=== PATIENT | male | born 1955 | race African-American/Black ===

== ENCOUNTER 2019-07-30 00:55 | Emergency (ER) | payer BC ==
[~2019-07-30] VITALS: Ht 167.6 cm; Wt 79.8 kg
[2019-07-30 03:05] LABS: HEMATOCRIT 38.3 % (42.0-52.0); HEMOGLOBIN 12.7 gm/dL (14.0-18.0); MCHC 33.2 g/dL (28.0-37.0); MCV 84.4 fL (80.0-100.0); RBC 4.54 mil/uL (4.50-6.00); RDW 13.4 % (10.5-14.5); WBC 7.2 thou/uL (4.0-11.0)
[2019-07-30 03:16] LABS: ALBUMIN 3.7 g/dL (3.4-5.0); CALCIUM 9.7 mg/dL (8.5-10.1); MAGNESIUM 1.6 mg/dL (1.8-2.4); POTASSIUM 3.8 mmol/L (3.5-5.1); TOTAL BILIRUBIN 0.3 mg/dL (<0.1-1.0); TOTAL PROTEIN 8.3 g/dL (6.4-8.2)
[2019-07-30] MEDS ORDERED: AMOXICILLIN875 MG PO (03:38)
[2019-07-30] MEDS ORDERED: NORFLEX100 MG PO (03:38)
[2019-07-30] MEDS ORDERED: TRAMADOL 50 MG50 MG PO (03:38)
[2019-07-30] MEDS ORDERED: MAG-OXIDE400 MG PO (03:40)
[2019-07-30 04:04] VITALS: BP 149/85
== END 2019-07-30 04:05 | disposition home or self-care (01) ==
LOC: ER 00:55
PROVIDERS: Emergency Medicine
DX: M43.6 Torticollis (principal); G44.209 Tension-type headache, unspecified, not intractable; E83.42 Hypomagnesemia; J32.9 Chronic sinusitis, unspecified; I12.9 Hypertensive chronic kidney disease with stage 1 through stage 4 chronic kidney disease, or unspecified chronic kidney disease; E11.22 Type 2 diabetes mellitus with diabetic chronic kidney disease; N18.3 Chronic kidney disease, stage 3 (moderate); E78.00 Pure hypercholesterolemia, unspecified; Z88.8 Allergy status to other drugs, medicaments and biological substances